=== PATIENT | male | born 1950 | race Hispanic/Latino ===

== ENCOUNTER 2017-09-10 07:19 | Day surgery (SDC) | payer BC ==
[2017-09-10] MEDS ORDERED: VERSED IV NR (07:55)
[2017-09-10] MEDS ORDERED: SUBLIMAZE IV NR (07:55)
[2017-09-10 08:06] LABS: Hematocrit 44.1 % (35.5-45.6); Hemoglobin 14.9 gm/dl (11.8-15.2); INR 1.13 (0.87-1.13); Partial Thromboplastin Time 29.7 Sec. (24.2-36.6); Red Blood Count 4.52 M/mm3 (3.65-5.03)
[2017-09-10 08:07] LABS: BUN/Creatinine Ratio 19; Basophils % (Auto) 0.1 % (0.0-1.8); Blood Urea Nitrogen 13 mg/dL (9-20); Calcium 9.3 mg/dL (8.4-10.2); Eosinophils % (Auto) 4.4 % (0.0-4.3); Hemolysis Index 8; Lymphocytes # (Auto) 0.8 K/mm3 (1.2-5.4); Lymphocytes % (Auto) 8.2 % (13.4-35.0); Mean Corpuscular HGB Conc 34 % (32-34); Mean Corpuscular Hemoglobin 33 pg (28-32); Mean Corpuscular Volume 98 fl (84-94); Monocytes % (Auto) 8.5 % (0.0-7.3); Platelet Count 235 K/mm3 (140-440); Red Cell Distribution Width 14.7 % (13.2-15.2)
[2017-09-10 08:08] LABS: Eosinophils # (Auto) 0.4 K/mm3 (0.0-0.4); Monocytes # (Auto) 0.8 K/mm3 (0.0-0.8)
[2017-09-10] MEDS ORDERED: BENADRYL ONE (10:20)
[2017-09-10] MEDS ORDERED: BENADRYL IV NR (10:30)
--- NOTE | 2017-09-10 12:03 | Cat Scan Report ---
CT BIOPSY LIVER HISTORY: Colon cancer, liver masses. DESCRIPTION OF PROCEDURE: Informed consent was obtained. Sterile technique was utilized. Moderate sedation was accomplished with Versed, fentanyl and Benadryl. The patient was sedated for 25 minutes. Independent cardiorespiratory monitoring by RN. Intraobserver time of [address] guidance, a 17-gauge introducer needle was advanced to the central portions of a right hepatic lobe mass measuring approximately 5 cm. There was immediate return of necrotic appearing fluid. Approximately 20 cc of necrotic fluid was aspirated and sent for laboratory for culture. 4 separate 18-gauge core biopsies were obtained for pathology. 2 of the samples were necrotic. 2 of the samples appeared adequate. Pathology was present to evaluate the samples. No complications. IMPRESSION: Successful CT-guided biopsy of an approximate 5 cm right hepatic lobe mass. Please note the mass was markedly necrotic. Please await the formal report from pathology.
[2017-09-10] MEDS ORDERED: NORCO 5/325 ONE (13:08)
[2017-09-10] MEDS ORDERED: NORCO 5/325 PO NR (13:12)
[2017-09-10 13:29] VITALS: BP 165/80
== END 2017-09-10 13:20 | disposition home or self-care (01) ==
LOC: CATHLABREC 07:19 → EDSTATUS 07:30 → CATHLABREC 13:20
PROVIDERS: ATTEND Internal Medicine Hematology & Oncology
DX: C78.7 Secondary malignant neoplasm of liver and intrahepatic bile duct (principal); C18.9 Malignant neoplasm of colon, unspecified
CPT/HCPCS: 36415; 47000; 77012; 80048; 85025; 85610; 85730; 87116; 88172; 88173; 88177; 88305; 88307; 88341; 88342; 99156; 99157; J1200; J2250; J3010; 88333